=== PATIENT | female | born 1990 | race Caucasian/White ===

== ENCOUNTER 2018-05-01 01:18 | Emergency (ER) | payer MEDICAID ==
[~2018-05-01] VITALS: Ht 170.2 cm; Wt 63.5 kg
[2018-05-01 01:39] VITALS: BP 121/79
[2018-05-01] MEDS ORDERED: Bacitracin Oint UD TOPIC ONE (01:50)
[2018-05-01] MEDS ORDERED: BACITRACIN15 GM TOPIC (02:24)
[2018-05-01 02:33] VITALS: BP 115/75
--- NOTE | 2018-05-01 02:49 | Emergency Room Report ---
History of Present Illness General Chief Complaint: Laceration Source: Patient Present Illness HPI 28-year-old female presents ED for evaluation. Resents with laceration above right eyebrow. Will not elaborate how it happened. occured about 2 hours ago. Under the influence of alcohol. Tetanus is up-to-date. Denies pain. Denies any other injuries. No other aggravating relieving factors. Denies any other associated symptoms Allergies: Coded Allergies: No Known Allergies (Unverified , 05/01/18) Patient History Past Medical History: none Past Surgical History: none Pertinent Family History: none Social History: Reports: alcohol use; Denies: smoking, drug use Now: No Immunizations: UTD Reviewed Nursing Documentation: PMH: Agreed; PSxH: Agreed Nursing Documentation-PMH Past Medical History: No Stated History Review of Systems All Other Systems: negative except mentioned in HPI Physical Exam Vital Signs Date Time Temp Pulse Resp B/P (MAP) Pulse Ox O2 Delivery O2 Flow Rate FiO2 05/01/18 01:31 97.9 81 16 121/79 97 Room Air Sp02 EP Interpretation: reviewed, normal General Appearance: no apparent distress, alert, GCS 15, non-toxic Head: normocephalic, other - stellate laceration above R eyebrow Eyes: bilateral eye normal inspection, bilateral eye PERRL, bilateral eye EOMI ENT: normal ENT inspection Neck: normal inspection Respiratory: normal inspection Cardiovascular #1: normal inspection Gastrointestinal: normal inspection Rectal: deferred Genitourinary: no CVA tenderness Musculoskeletal: normal inspection Neurologic: alert, oriented x3, responsive, motor strength/tone normal, sensory intact, speech normal Psychiatric: normal inspection Skin: other - 2cm stellate laceration above R eyebrow Lymphatic: normal inspection Procedures Laceration/Wound Repair Laceration/Wound Repair : Consent: Verbal Wound Location: head Wound's Depth, Shape: stellate Wound Explored: clean Betadine Prep?: Yes Anesthesia: 1% Lidocaine Wound Debrided: minimal Wound Repaired With: sutures Suture Size/Type: 6:0, proline Layer Closure?: No Sterile Dressing Applied?: Yes Splint Applied?: No Sling Applied?: No Patient Tolerated: Well Complications: None Medical Decision Making Diagnostic Impression: Primary Impression: Laceration ER Course Hospital Course 28-year-old F presents to ED s/p laceration above R eyebrow Clinical course Patient placed on stretcher. After initial history and physical, wound irrigated. Anesthesia provided with lidocaine. Laceration repaired w/o complication. bacitracin/Dressing applied. Diagnosis - laceration Stable and discharged to home with prescription for bacitracin. wound Care instructions given. Followup with PMD in 5-7 days for suture removal. Return to ED if any signs of infection develop Last Vital Signs Date Time Temp Pulse Resp B/P (MAP) Pulse Ox O2 Delivery O2 Flow Rate FiO2 05/01/18 02:33 97.9 80 16 115/75 99 Room Air Status: improved Disposition: HOME, SELF-CARE Condition: Stable Scripts Bacitracin (Bacitracin) 28.4 Gm Oint...g. 1 APPLIC TOPIC THREE TIMES A DAY, #28.4 GM Prov: Hai Guillen MD 05/01/18 Referrals: [facility],REFERRING (PCP) Patient Instructions: Facial Laceration Additional Instructions: have sutures removed in 5-7 days . return to ED if any signs of infection develop Hai Guillen MD May 01, 2018 02:49
== END 2018-05-01 02:33 | disposition home or self-care (01) ==
LOC: EMR 01:52
DX: S01.111A Laceration without foreign body of right eyelid and periocular area, initial encounter (principal); X58.XXXA Exposure to other specified factors, initial encounter; Y92.9 Unspecified place or not applicable; Z72.89 Other problems related to lifestyle
CPT/HCPCS: 12011; 99283; Z7502